=== PATIENT | female | born 1965 | race Caucasian/White ===

== ENCOUNTER 2017-10-03 13:03 | Observation (INO) | payer BC ==
[2017-10-03] MEDS ORDERED: Famotidine 20 MG/2 ML SDV IVPUSH ONE (13:12)
[2017-10-03] MEDS ORDERED: Sodium Chloride 0.9% 10 ML Syringe FLUSH PRN (13:12)
[2017-10-03] MEDS ORDERED: Sodium Chloride 0.9% 2.5 ML Syringe FLUSH PRN (13:12)
[2017-10-03] MEDS ORDERED: Aspirin 81 MG Tab.Chew PO ONE (13:12)
[2017-10-03] MEDS ORDERED: Sodium Chloride 0.9% 1,000 ML IV ONE (13:12)
--- NOTE | 2017-10-03 13:12 | EDM.PDOC ---
ED HPI GENERAL MEDICAL PROBLEM - General Chief Complaint: Chest Pain Stated Complaint: CHEST PAIN Time Seen by Provider: 10/03/17 13:10 Source of Information: Reports: Patient History Limitations: Reports: No Limitations - History of Present Illness INITIAL COMMENTS - FREE TEXT/NARRATIVE: HISTORY AND PHYSICAL: []52-year-old female presenting with chest pain that awakened her this morning History of Present Illness: []She states it feels more like a pressure to her chest and does not increase in pain with a deep breath Review of Systems: As per history of present illness and below otherwise all systems reviewed and negative. Past medical history: As per history of present illness and as reviewed below otherwise noncontributory. Surgical history: As per history of present illness and as reviewed below otherwise noncontributory. Social history: No reported history of drug or alcohol abuse. Family history: As per history of present illness and as reviewed below otherwise noncontributory. Physical exam: Alert and oriented female answering questions appropriately in full sentences without any shortness of breath. Points to mid sternal area with questions about where her pain is located. Date is more of a pressure sitting on her chest. HEENT: Atraumatic, normocehpalic, pupils reactive, negative for conjunctival pallor or scleral icterus, mucous membranes moist, throat clear, neck supple, nontender, trachea midline. Lungs: Clear to auscultation, breath sounds equal bilaterally, chest non tender. Heart: S1S2, regular, negative for clicks, rubs, or JVD. Abdomen: Soft, nondistended, nontender. Negative for masses or hepatossplenmegaly. Negative for costovertebral tenderness. Pelvis: Stable nontender. Genitourinary: Deferred. Rectal: Deferred Extremities: Atraumatic, negative for cords or calf pain. Neurovascular unremarkable. Neuro: Awake, alert, oriented. Cranial nerves II through XII unremarkable. Cerebellum unremarkable. Motor and sensory unremarkable throughout. Exam nonfocal. Discussed this patient with who has accepted patient for observation Diagnostics: []CBC CMP EKG chest x-ray: Therapeutics: []Nitrostat 2 Impression: []Chest pain Rule out ACS Plan: []Refer for observation Definitive disposition and diagnosis as appropriate pending reevaluation and review of above. Onset: Today, Sudden Duration: Hour(s): Location: Reports: Chest Quality: Reports: Ache, Pressure Severity: Moderate Improves with: Reports: None Worsens with: Reports: None Chest Pain Score (Numeric/FACES): 3 - Related Data Allergies Allergy/AdvReac Type Severity Reaction Status Date / Time aspirin Allergy Nausea Verified 10/03/17 13:06 Home Meds: Home Meds Clobetasol [Clobetasol Propionate 0.05%] 30 gm TOP DAILY PRN 06/26/13 [History] Estradiol [Vagifem] 10 mcg VG DAILY 06/26/13 [History] Past Medical History Cardiovascular History: Reports: None Respiratory History: Reports: Bronchitis, Recurrent Genitourinary History: Reports: None Musculoskeletal History: Reports: None Neurological History: Reports: Head Trauma Other Neuro History: Head trauma : when she was 1 1/2 years a[age] Psychiatric History: Reports: None Endocrine/Metabolic History: Reports: None Hematologic History: Reports: None Immunologic History: Reports: None Oncologic (Cancer) History: Reports: None Dermatologic History: Reports: None - Infectious Disease History Infectious Disease History: Reports: None - Past Surgical History GI Surgical History: Reports: Other (See Below) ED ROS GENERAL - Review of Systems Review Of Systems: ROS reveals no pertinent complaints other than HPI. ED EXAM, GENERAL - Physical Exam Exam: See Below (See dictation) EKG INTERPRETATION EKG Date: 10/03/17 Rhythm: NSR Comparison: No Change Course - Vital Signs Last Recorded V/S: Last Vital Signs Temp 36.4 C 10/03/17 13:08 Pulse 60 10/03/17 13:08 Resp 16 10/03/17 13:08 BP 147/66 H 10/03/17 13:58 Pulse Ox 100 10/03/17 13:08 - Orders/Labs/Meds Orders: Active Orders 24 hr Category Date Time Status Patient Status [ADT] Stat ADT 10/03/17 15:01 Active Cardiac Monitoring [RC] . DIRECTED Care 10/03/17 13:12 Active EKG Documentation Completion [RC] STAT Care 10/03/17 13:12 Active Oxygen Therapy [RC] ASDIRECTED Care 10/03/17 13:12 Active Telemetry Monitoring [Cardiac Monitoring] [RC] . Care 10/03/17 14:29 Active DIRECTED Chest 1V Frontal [CR] Stat Exams 10/03/17 13:12 Taken UA W/MICROSCOPIC [URIN] Stat Lab 10/03/17 13:13 Ordered Sodium Chloride 0.9% [Saline Flush] Med 10/03/17 13:12 Active 10 ml FLUSH ASDIRECTED PRN Sodium Chloride 0.9% [Saline Flush] Med 10/03/17 13:12 Active 2.5 ml FLUSH ASDIRECTED PRN Saline Lock Insert [OM.PC] Stat Oth 10/03/17 13:12 Ordered Medication Orders Sodium Chloride (Saline Flush) 10 ml FLUSH ASDIRECTED PRN PRN Reason: Keep Vein Open Sodium Chloride (Saline Flush) 2.5 ml FLUSH ASDIRECTED PRN PRN Reason: Keep Vein Open Labs: Laboratory Tests 10/03/17 10/03/17 10/03/17 Range/Units 13:43 13:43 13:43 WBC 8.39 (4.0-11.0) K/uL RBC 4.57 (4.30-5.90) M/uL Hgb 12.8 (12.0-16.0) g/dL Hct 39.1 (36.0-46.0) % MCV 85.6 (80.0-98.0) fL MCH 28.0 (27.0-32.0) pg MCHC 32.7 (31.0-37.0) g/dL RDW Std Deviation 43.0 (28.0-62.0) fl RDW Coeff of Ben 14 (11.0-15.0) % Plt Count 277 (150-400) K/uL MPV 10.80 (7.40-12.00) fL Neut % (Auto) 55.2 (48.0-80.0) % Lymph % (Auto) 34.7 (16.0-40.0) % [place]in[place] % (Auto) 6.3 (0.0-15.0) % Eos % (Auto) 3.3 (0.0-7.0) % Baso % (Auto) 0.5 (0.0-1.5) % Neut # (Auto) 4.6 (1.4-5.7) K/uL Lymph # (Auto) 2.9 H (0.6-2.4) K/uL [place]in[place] # (Auto) 0.5 (0.0-0.8) K/uL Eos # (Auto) 0.3 (0.0-0.7) K/uL Baso # (Auto) 0.0 (0.0-0.1) K/uL Nucleated RBC % 0.0 /100WBC Nucleated RBCs # 0 K/uL INR 1.04 Sodium 138 (136-145) mmol/L Potassium 4.0 (3.5-5.1) mmol/L Chloride 104 (98-107) mmol/L Carbon Dioxide 26.9 (21.0-32.0) mmol/L BUN 25 H (7.0-18.0) mg/dL Creatinine 0.7 (0.6-1.0) mg/dL Est Cr Clr Drug Dosing 67.53 mL/min Estimated GFR (MDRD) > 60.0 ml/min Glucose 95 (74-106) mg/dL Calcium 9.5 (8.5-10.1) mg/dL Total Bilirubin 0.3 (0.2-1.0) mg/dL AST 32 (15-37) IU/L ALT 34 (14-63) IU/L Alkaline Phosphatase 99 (46-116) U/L Troponin I < 0.050 (0.000-0.056) ng/mL Total Protein 7.5 (6.4-8.2) g/dL Albumin 3.7 (3.4-5.0) g/dL Globulin 3.8 H (2.0-3.5) g/dL Albumin/Globulin Ratio 1.0 L (1.3-2.8) Amylase 40 (25-115) U/L Lipase 215 (73-393) U/L Meds: Medications Generic Name Dose Route Start Last Admin Trade Name Freq PRN Reason Stop Dose Admin Sodium Chloride 10 ml 10/03/17 13:12 Saline Flush FLUSH ASDIRECTED PRN Keep Vein Open Sodium Chloride 2.5 ml 10/03/17 13:12 Saline Flush FLUSH ASDIRECTED PRN Keep Vein Open Discontinued Medications Generic Name Dose Route Start Last Admin Trade Name Freq PRN Reason Stop Dose Admin Aspirin 324 mg 10/03/17 13:12 10/03/17 13:49 Aspirin PO 10/03/17 13:13 324 mg ONETIME ONE Administration Famotidine 20 mg 10/03/17 13:12 10/03/17 13:59 Pepcid IVPUSH 10/03/17 13:13 20 mg ONETIME ONE Administration Sodium Chloride 1,000 mls @ 999 mls/hr 10/03/17 13:12 10/03/17 13:49 Normal Saline IV 10/03/17 14:12 999 mls/hr BOLUS ONE Administration Nitroglycerin 0.4 mg 10/03/17 13:12 10/03/17 13:58 Nitrostat SL 10/03/17 13:13 0.4 mg ONETIME ONE Administration Departure - Departure Time of Disposition: 15:08 Disposition: Refer to Observation Condition: Good Clinical Impression: Atypical chest pain Forms: ED Department Discharge - My Orders Last 24 Hours: My Active Orders 10/03/17 13:12 Cardiac Monitoring [RC] . DIRECTED EKG Documentation Completion [RC] STAT Oxygen Therapy [RC] ASDIRECTED Chest 1V Frontal [CR] Stat Sodium Chloride 0.9% [Saline Flush] 10 ml FLUSH ASDIRECTED PRN Sodium Chloride 0.9% [Saline Flush] 2.5 ml FLUSH ASDIRECTED PRN Saline Lock Insert [OM.PC] Stat 10/03/17 13:13 UA W/MICROSCOPIC [URIN] Stat 10/03/17 14:29 Telemetry Monitoring [Cardiac Monitoring] [RC] . DIRECTED 10/03/17 15:01 Patient Status [ADT] Stat - Assessment/Plan Last 24 Hours: My Active Orders 10/03/17 13:12 Cardiac Monitoring [RC] . DIRECTED EKG Documentation Completion [RC] STAT Oxygen Therapy [RC] ASDIRECTED Chest 1V Frontal [CR] Stat Sodium Chloride 0.9% [Saline Flush] 10 ml FLUSH ASDIRECTED PRN Sodium Chloride 0.9% [Saline Flush] 2.5 ml FLUSH ASDIRECTED PRN Saline Lock Insert [OM.PC] Stat 10/03/17 13:13 UA W/MICROSCOPIC [URIN] Stat 10/03/17 14:29 Telemetry Monitoring [Cardiac Monitoring] [RC] . DIRECTED 10/03/17 15:01 Patient Status [ADT] Stat
[2017-10-03] MEDS: Nitroglycerin 0.4 MG Tab.SL SL ONE ×2 (13:50→13:58)
[2017-10-03 14:23] LABS: CHLORIDE,CL 104 mmol/L (98-107); SODIUM,NA 138 mmol/L (136-145)
[2017-10-03] MEDS ORDERED: CLOBETASOL CREAM TOP PRN (17:49)
[2017-10-03] MEDS ORDERED: Ondansetron 4 MG/2 ML SDV IVPUSH PRN (17:50)
[2017-10-03] MEDS ORDERED: Morphine 2 MG/ML Syringe IVPUSH PRN (17:50)
[2017-10-03] MEDS ORDERED: Albuterol/Ipratropium 3.0-0.5 MG/3 ML Neb Soln NEB PRN (17:50)
[2017-10-03] MEDS ORDERED: Enoxaparin 40 MG/0.4 ML Syringe SUBCUT SCH (18:00)
--- NOTE | 2017-10-03 18:20 | CR ---
EXAM DATE: 10/03/17 PATIENT'S AGE: 52 Patient: SKYLAR JOHNSTON Facility: [place], [place] Site . Site : 1965 Study: XRay Chest [id number]/[id number] 1:54:45 PM Ordering Physician: Doctor Pete Final Report: INDICATION: Chest pain. COMPARISON: PA/lateral chest 03/13/2015. FINDINGS: Bony thorax and soft tissue structures are intact. Cardiac and mediastinal silhouettes are normal. The pulmonary vasculature is normal. The lungs are free of infiltrate. IMPRESSION: Normal portable chest. Dictated by Chey Lorenzo MD @ Oct 03 2017 2:37PM (Electronic Signature) Report Signed by Proxy. JOHN PAUL
[2017-10-03] MEDS ORDERED: Furosemide 40 MG/4 ML VIAL IVPUSH ONE (18:49)
--- NOTE | 2017-10-04 00:12 | HP ---
DATE OF : 1965 PRIMARY CARE PHYSICIAN: Unknown PCP HISTORY OF PRESENT ILLNESS: The patient is a 52-year-old female, presented to emergency room because of shortness of breath. She felt her chest was tight, could not take a deep breath. The patient's symptoms started this morning at 6:00 when she felt like an elephant was sitting on her chest. The intensity of the symptoms was 4/10 and they improved with nitroglycerin she received in the emergency room, but she still continued to have a chest tightness in the middle of the chest that is 2/10. She denies asthma or COPD but says she gets allergies with bronchitis in the allergy seasons( spring and fall) No wheezing. She arrived in the emergency room around 12:30 p.m. Her symptoms were worse when she walked, it also changes with breathing. When she takes a deep breath, her symptoms are worse. PAST MEDICAL HISTORY: She had a gastric bypass in 2012 and hysterectomy in 1999. She had surgery for adenoids. No hypertension. No history of blood clots. She has lichen sclerosus. PAST SURGICAL HISTORY: As above. ALLERGIES: She is allergic to aspirin. SOCIAL HISTORY: Smoking history, she never smoked. No alcohol use. No drug use. Works as a high school band teacher. FAMILY HISTORY: Her mom had CHF. Father had prostate cancer. REVIEW OF SYSTEMS: A 12-point review of system is negative except as in history of present illness. PHYSICAL EXAMINATION: VITAL SIGNS: At admission, temperature was 97.6, pulse 60, blood pressure 138/67, respiratory rate 16, oxygen saturation by pulse oximetry 100. HEENT: Head is atraumatic, normocephalic. Pupils are equally reactive to light. NECK: Supple. No thyromegaly. No lymphadenopathy. ABDOMEN: Soft, nontender. Positive bowel sounds. HEART: S1 and S2. Regular rhythm and rate. No murmur. LUNGS: Clear to auscultation. EXTREMITIES: No edema. NEUROLOGIC: The patient is alert and oriented x3. There are no gross focal neurological deficits. LABORATORY DATA: At admission; WBC 8.39, hemoglobin 12.8, hematocrit 39.1, platelet count 277. INR 1.04. Sodium 138, potassium 4, chloride 104, carbon dioxide 26.9, BUN 25, creatinine 0.7, glucose 95, calcium 9.5, bilirubin 0.3, AST 32, ALT 34, alkaline phosphatase 99. Troponin less than 0.05. Total protein 7.5, albumin 3.7, and amylase 48, lipase 215. Urinalysis was negative. Chest x-ray shows a normal portable chest. EKG was normal sinus rate, no st - t changes ASSESSMENT AND PLAN: Chest pain, rule out acute coronary syndrome. The chest pain seems atypical. We will admit the patient to telemetry. We will follow up 3 sets of troponins and we will order lipid profile in the morning and D-dimer. We will give the patient DuoNeb nebulizer treatment. For DVT prophylaxis, we will put the patient on Lovenox 40 mg subcutaneous q.24 hours. We will monitor the patient in telemetry. COLTON / AMILCAR /[id number] Discharge summary Patient admitted to telemetry to observation for atypical chest pain, she had cardiac enzymes 3 sets negative, no events in telemetry, lipid profile and hemoglobin A1c were normal. Patient was discharged home with albuterol inhale and I think her chest tightness is secondary to allergies or asthma, she doesn' t have risk factors for coronary artery disease she is nonsmoker and cholesterol was normal and she doesn't have diabetes, patient to follow-up with her PCPrs. Her chest tightness change with positions so it is unlikely she had a cardiac pain. Her chest tenderness resolved in the morning MTDD
[2017-10-04 02:19] LABS: CHLORIDE,CL 105 mmol/L (98-107); SODIUM,NA 140 mmol/L (136-145)
[2017-10-04] MEDS: Albuterol/Ipratropium 3.0-0.5 MG/3 ML Neb Soln NEB SCH ×2 (02:49→07:31)
[2017-10-04] MEDS ORDERED: Acetaminophen 325 MG Tab PO PRN (08:30)
[2017-10-04 11:13] VITALS: BP 134/57
== END 2017-10-04 12:10 | disposition home or self-care (01) ==
LOC: MW.ED 13:03 → MW.MS 17:48
PROVIDERS: ADMIT Internal Medicine; ATTEND Internal Medicine
DX: R07.89 Other chest pain (principal); Z88.6 Allergy status to analgesic agent
CPT/HCPCS: 36415; 71045; 71045-26; 80053; 80061; 81001; 82150; 83690; 84484; 85025; 85027; 85379; 85610; 93005; 94640; 96361; 96372; 96374; 96375; 99283; 99285-25; A9270-GY; G0378; J1650; J1940; J3490; J7040

== ENCOUNTER 2018-04-11 03:38 | Emergency (ER) | payer BC ==
--- NOTE | 2018-04-11 04:02 | EDM.PDOC ---
ED HPI GENERAL MEDICAL PROBLEM - General Chief Complaint: Genitourinary Problem Stated Complaint: BACK PAIN Time Seen by Provider: 04/11/18 04:00 - History of Present Illness INITIAL COMMENTS - FREE TEXT/NARRATIVE: HISTORY AND PHYSICAL: History of present illness: Patient's 52-year-old white female history of urolithiasis who presents with concern of acute left flank pain associated nausea and vomiting she denies fever chills, or other concern Review of systems: As per history of present illness and below otherwise all systems reviewed and negative. Past medical history: As per history of present illness and as reviewed below otherwise noncontributory. Surgical history: As per history of present illness and as reviewed below otherwise noncontributory. Social history: No reported history of drug or alcohol abuse. Family history: As per history of present illness and as reviewed below otherwise noncontributory. Physical exam: HEENT: Atraumatic, normocephalic, pupils reactive, negative for conjunctival pallor or scleral icterus, mucous membranes moist, throat clear, neck supple, nontender, trachea midline. Lungs: Clear to auscultation, breath sounds equal bilaterally, chest nontender. Heart: S1S2, regular, negative for clicks, rubs, or JVD. Abdomen: Soft, nondistended, nontender. Negative for masses or hepatosplenomegaly. Left-sided costovertebral tenderness. Pelvis: Stable nontender. Genitourinary: Deferred. Rectal: Deferred. Extremities: Atraumatic, negative for cords or calf pain. Neurovascular unremarkable. Neuro: Awake, alert, oriented. Cranial nerves II through XII unremarkable. Cerebellum unremarkable. Motor and sensory unremarkable throughout. Exam nonfocal. Diagnostics: CBC CMP UA CT abdomen and pelvis Therapeutics: Saline 1 L bolus Impression: #1 acute left flank pain #2 history of urolithiasis Definitive disposition and diagnosis as appropriate pending reevaluation and review of above. Left Flank Pain Score (Numeric/FACES): 9 - Related Data Allergies Allergy/AdvReac Type Severity Reaction Status Date / Time aspirin Allergy Nausea Verified 04/11/18 03:47 Home Meds: Home Meds Clobetasol [Clobetasol 0.05%] 30 gm TOP DAILY PRN 06/26/13 [History] Estradiol [Vagifem] 10 mcg VG DAILY 06/26/13 [History] Albuterol [Ventolin HFA] 1 puff INH Q4H PRN #1 bottle 10/04/17 [Rx] Past Medical History Cardiovascular History: Reports: None Respiratory History: Reports: Bronchitis, Recurrent Genitourinary History: Reports: None Musculoskeletal History: Reports: None Neurological History: Reports: Head Trauma Other Neuro History: Head trauma : when she was 1 1/2 years aold Psychiatric History: Reports: None Endocrine/Metabolic History: Reports: None Hematologic History: Reports: None Immunologic History: Reports: None Oncologic (Cancer) History: Reports: None Dermatologic History: Reports: None - Infectious Disease History Infectious Disease History: Reports: Chicken Pox, Mumps - Past Surgical History Head Surgeries/Procedures: Reports: None Other HEENT Surgeries/Procedures: adenoidectomy GI Surgical History: Reports: Other (See Below) Social & Family History - Family History Family Medical History: Noncontributory - Tobacco Use Smoking Status *Q: Never Smoker Second Hand Smoke Exposure: No - Caffeine Use Caffeine Use: Reports: Coffee - Recreational Drug Use Recreational Drug Use: No ED ROS GENERAL - Review of Systems Review Of Systems: ROS reveals no pertinent complaints other than HPI. ED EXAM, GENERAL - Physical Exam Exam: See Below (See dictation) Course - Vital Signs Last Recorded V/S: Last Vital Signs Temp 36.3 C 04/11/18 03:48 Pulse 73 04/11/18 03:48 Resp 26 H 04/11/18 03:48 BP 115/56 L 04/11/18 03:48 Pulse Ox 100 04/11/18 03:48 - Orders/Labs/Meds Labs: Laboratory Tests 04/11/18 04/11/18 04/11/18 Range/Units 03:45 03:45 03:45 WBC 10.01 (4.0-11.0) K/uL RBC 4.64 (4.30-5.90) M/uL Hgb 12.8 (12.0-16.0) g/dL Hct 39.4 (36.0-46.0) % MCV 84.9 (80.0-98.0) fL MCH 27.6 (27.0-32.0) pg MCHC 32.5 (31.0-37.0) g/dL RDW Std Deviation 44.7 (28.0-62.0) fl RDW Coeff of Ben 15 (11.0-15.0) % Plt Count 286 (150-400) K/uL MPV 10.90 (7.40-12.00) fL Neut % (Auto) 58.6 (48.0-80.0) % Lymph % (Auto) 31.5 (16.0-40.0) % Andrews % (Auto) 7.4 (0.0-15.0) % Eos % (Auto) 2.0 (0.0-7.0) % Baso % (Auto) 0.5 (0.0-1.5) % Neut # (Auto) 5.9 H (1.4-5.7) K/uL Lymph # (Auto) 3.2 H (0.6-2.4) K/uL Andrews # (Auto) 0.7 (0.0-0.8) K/uL Eos # (Auto) 0.2 (0.0-0.7) K/uL Baso # (Auto) 0.1 (0.0-0.1) K/uL Nucleated RBC % 0.0 /100WBC Nucleated RBCs # 0 K/uL Sodium 141 (136-145) mmol/L Potassium 4.1 (3.5-5.1) mmol/L Chloride 106 (98-107) mmol/L Carbon Dioxide 25.1 (21.0-32.0) mmol/L BUN 29 H (7.0-18.0) mg/dL Creatinine 0.7 (0.6-1.0) mg/dL Est Cr Clr Drug Dosing 67.53 mL/min Estimated GFR (MDRD) > 60.0 ml/min Glucose 120 H (74-106) mg/dL Calcium 9.3 (8.5-10.1) mg/dL Total Bilirubin 0.3 (0.2-1.0) mg/dL AST 31 (15-37) IU/L ALT 28 (14-63) IU/L Alkaline Phosphatase 118 H (46-116) U/L Total Protein 7.2 (6.4-8.2) g/dL Albumin 3.7 (3.4-5.0) g/dL Globulin 3.5 (2.6-4.0) g/dL Albumin/Globulin Ratio 1.1 (0.9-1.6) Lipase 192 (73-393) U/L Urine Color YELLOW Urine Appearance CLOUDY Urine pH 5.5 (5.0-8.0) Ur Specific Tilly >= 1.030 (1.001-1.035) Urine Protein 30 H (NEGATIVE) mg/dL Urine Glucose (UA) NEGATIVE (NEGATIVE) mg/dL Urine Ketones NEGATIVE (NEGATIVE) mg/dL Urine Occult Blood LARGE H (NEGATIVE) Urine Nitrite NEGATIVE (NEGATIVE) Urine Bilirubin SMALL H (NEGATIVE) Urine Ictotest NEGATIVE Urine Urobilinogen 0.2 (<2.0) EU/dL Ur Leukocyte Esterase NEGATIVE (NEGATIVE) Urine RBC 115-120 (0-2/HPF) Urine WBC O-1 (0-5/HPF) Ur Epithelial Cells RARE (NONE-FEW) Calcium Oxalate Crystal MANY (NEGATIVE) Urine Bacteria RARE (NEGATIVE) Meds: Medications Discontinued Medications Generic Name Dose Route Start Last Admin Trade Name Freq PRN Reason Stop Dose Admin Hydromorphone HCl 1 mg 04/11/18 04:11 04/11/18 04:14 Dilaudid IVPUSH 04/11/18 04:12 1 mg ONETIME ONE Administration Sodium Chloride 1,000 mls @ 999 mls/hr 04/11/18 03:51 04/11/18 04:05 Normal Saline IV 04/11/18 04:51 999 mls/hr .Bolus ONE Administration Ketorolac Tromethamine 30 mg 04/11/18 03:52 04/11/18 04:09 Toradol IVPUSH 04/11/18 03:53 30 mg ONETIME ONE Administration Ondansetron HCl 4 mg 04/11/18 03:50 04/11/18 04:08 Zofran IVPUSH 04/11/18 03:51 4 mg ONETIME ONE Administration Departure - Departure Time of Disposition: 05:59 Disposition: Home, Self-Care 01 Condition: Good Clinical Impression: Ureteric stone, Renal colic - Discharge Information Referrals: PCP,None [Primary Care Provider] - Forms: ED Department Discharge Additional Instructions: The following information is given to patients seen in the emergency department who are being discharged to home. This information is to outline your options for follow-up care. We provide all patients seen in our emergency department with a follow-up referral. The need for follow-up, as well as the timing and circumstances, are variable depending upon the specifics of your emergency department visit. If you don't have a primary care physician on staff, we will provide you with a referral. We always advise you to contact your personal physician following an emergency department visit to inform them of the circumstance of the visit and for follow-up with them and/or the need for any referrals to a consulting specialist. The emergency department will also refer you to a specialist when appropriate. This referral assures that you have the opportunity for followup care with a specialist. All of these measure are taken in an effort to provide you with optimal care, which includes your followup. Under all circumstances we always encourage you to contact your private physician who remains a resource for coordinating your care. When calling for followup care, please make the office aware that this follow-up is from your recent emergency room visit. If for any reason you are refused follow-up, please contact the [facility] emergency department at and asked to speak to the emergency department charge nurse. [facility] - Urology [address] [place] [id number] Hydrocodone Zofran Flomax as prescribed follow-up urology above call to schedule appointment return as needed as discussed
[2018-04-11] MEDS: Sodium Chloride 0.9% 1,000 ML IV ONE (04:05)
[2018-04-11] MEDS: Ondansetron 4 MG/2 ML SDV IVPUSH ONE (04:08)
[2018-04-11] MEDS: Ketorolac 30 MG/ML SDV IVPUSH ONE (04:09)
[2018-04-11] MEDS: HYDROmorphone 1 MG/ML Syringe IVPUSH ONE (04:14)
[2018-04-11 04:35] LABS: CHLORIDE,CL 106 mmol/L (98-107); SODIUM,NA 141 mmol/L (136-145)
--- NOTE | 2018-04-11 05:16 | CT ---
INDICATION: Left lower quadrant pain, history of kidney stones. TECHNIQUE: CT abdomen and pelvis without contrast. COMPARISON: None. FINDINGS: Lower chest: Unremarkable. Liver: Normal in size and attenuation. No masses. Gallbladder and bile ducts: No stones or inflammation. No biliary dilatation. Pancreas: Unremarkable. No mass or inflammation. Spleen: Normal in size. No masses. Adrenal glands: Normal in size. No nodules. Kidneys: Normal in contour with mild left hydronephrosis. This extends to the ureterovesicular junction where there is an obstructing 4 x 3 x 3 millimeter stone. GI tract: Status post gastric bypass without dilated loops of large or small intestine. Appendix unremarkable. Vasculature: Unremarkable. Pelvis: Status posthysterectomy. Bones: Unremarkable for age. IMPRESSION: Nephrolithiasis with mild left hydronephrosis and an obstructing left ureterovesicular junction stone measuring 4 x 3 x 3 millimeters. Please note that all CT scans at this facility use dose modulation, iterative reconstruction, and/or weight-based dosing when appropriate to reduce radiation dose to as low as reasonably achievable. Dictated by Lan Benítez MD @ Apr 11 2018 5:11AM Signed by Dr. Lan Benítez @ Apr 11 2018 5:15AM
[2018-04-11] MEDS: Tamsulosin 0.4 MG Cap.ER PO ONE (06:12)
[2018-04-11 06:23] VITALS: BP 141/61
== END 2018-04-11 06:20 | disposition home or self-care (01) ==
LOC: MW.ED 03:38
DX: N13.2 Hydronephrosis with renal and ureteral calculous obstruction (principal); Z88.6 Allergy status to analgesic agent; Z79.899 Other long term (current) drug therapy
CPT/HCPCS: 36415; 74176; 80053; 81001; 83690; 85025; 96361; 96374; 96375; 99284; A9270; J1170; J1885; J2405; J7040

== ENCOUNTER 2023-09-21 08:41 | Day surgery (SDC) | payer BC ==
[2023-09-21] MEDS: Lactated Ringers 1,000 ML IV SCH (09:50)
[2023-09-21] MEDS ORDERED: Lidocaine 2% 5 ML SDV ONE (11:38)
[2023-09-21] MEDS ORDERED: propofoL 50 ML ONE (11:38)
[2023-09-21] MEDS ORDERED: Glycopyrrolate 0.2 MG/ML SDV ONE (12:21)
[2023-09-21] MEDS ORDERED: Atropine 1 MG/ML SDV ONE (12:21)
[2023-09-21] MEDS ORDERED: Lactated Ringers 1,000 ML IV SCH (13:00)
[2023-09-21 13:09] VITALS: BP 117/58; PULSE 67
== END 2023-09-21 13:20 | disposition home or self-care (01) ==
LOC: MW.SDS 08:41
PROVIDERS: ATTEND Surgery
DX: K20.90 Esophagitis, unspecified without bleeding (principal); D50.9 Iron deficiency anemia, unspecified; K44.9 Diaphragmatic hernia without obstruction or gangrene; E66.01 Morbid (severe) obesity due to excess calories; Z68.42 Body mass index [BMI] 45.0-49.9, adult; Z79.899 Other long term (current) drug therapy; R73.03 Prediabetes; Z88.8 Allergy status to other drugs, medicaments and biological substances; Z88.6 Allergy status to analgesic agent
CPT/HCPCS: 43239; 45378; J0461; J1596; J2704; J7120; 00813; J3490